=== PATIENT | male | born 1975 | race Caucasian/White ===

== ENCOUNTER → 2017-11-04 | Outpatient (REF) | payer OTHER ==
[2017-11-04 13:19] LABS: TESTOSTERONE 359 NG/DL (241-827)
== END ==
LOC: M SFHCPLAZ 08:38
DX: R68.82 Decreased libido (principal)
CPT/HCPCS: 84403

== ENCOUNTER → 2021-05-15 | Outpatient (CLI) | payer BC, OTHER ==
[~2021-05-15] MED LIST: No Historical Meds; PERC5TAB8 OR; PRED10TA2 OR; Pentasa PO
--- NOTE | 2021-05-15 12:35 | REP ---
INDICATION: CONTUSION. COMPARISON: None. TECHNIQUE: 6 views of the lumbar spine are presented. FINDINGS: Lumbar vertebral body heights are preserved. Alignment is normal. There is a bilateral L5 spondylolysis although no discernible spondylolisthesis is seen.. No fracture or collapse is seen. There is degenerative narrowing of the 4 5 and 3 4 disc spaces with anterior osteophyte formation at these levels. Anterior spurring is also noted at the L2-3 disc space. Psoas margins are symmetric. Sacrum and SI joints are intact. There are surgical sutures in the central pelvis and right lower abdomen from previous abdominal surgery. IMPRESSION: No traumatic abnormality noted. Degenerative spondylosis changes. Bilateral L5 spondylolysis without spondylolisthesis. <Electronically signed by Nishant Nassar > 05/15/21 [id number]
--- NOTE | 2021-05-15 12:41 | REP ---
INDICATION: CONTUSION. COMPARISON: None. TECHNIQUE: Four views of the sacrum and coccyx are presented. FINDINGS: The SI joints and symphysis pubis are intact. There is midline gastrointestinal surgical suture line. Bony pelvic ring is intact. No hip fracture is seen. No sacral fracture is noted. Lateral view shows pre sacral soft tissues be intact. No sacral fracture or displacement. Coccyx is unremarkable. IMPRESSION: No traumatic abnormality noted. Negative views of the sacrum and coccyx. <Electronically signed by Nishant Nassar > 05/15/21 [id number]
== END ==
LOC: M WUC 10:17
PROVIDERS: ATTEND Physician Assistant
DX: S30.0XXA Contusion of lower back and pelvis, initial encounter (principal)

== ENCOUNTER → 2023-03-06 | Outpatient (CLI) | payer BC, OTHER ==
[2023-03-06 10:19] LABS: BASO % 0.6 % (0.0-1.0); HEMATOCRIT 41.7 % (42.0-52.0); HEMOGLOBIN 14.5 g/dl (13.5-17.5); LYMPH % 43.3 % (24.0-44.0); MEAN CORPUSCULAR HEMOGLOBIN 29.8 pg (27.0-33.0); MEAN CORPUSCULAR HGB CONC 34.8 g/dl (32.0-36.5); MEAN CORPUSCULAR VOLUME 85.6 fl (80.0-96.0); MONO # 0.6 10^3/uL (0.0-0.8); MONO % 8.1 % (2.0-8.0); NEUTROPHILS # 3.3 10^3/uL (1.5-8.5); NEUTROPHILS % 47.6 % (36.0-66.0); PLATELET COUNT, AUTOMATED 262 10^3/uL (150-450); RED BLOOD COUNT 4.87 10^6/uL (4.30-6.10); WHITE BLOOD COUNT 6.8 10^3/uL (4.0-10.0)
[2023-03-06 10:32] LABS: ALBUMIN 3.7 G/DL (3.2-5.2); ALKALINE PHOSPHATASE 76 U/L (46-116); ALT/SGPT 32 U/L (7.0-40); AST/SGOT 14 U/L (<34); BILIRUBIN,TOTAL 0.5 MG/DL (0.3-1.2); BLOOD UREA NITROGEN 17 MG/DL (9-23); CALCIUM LEVEL 9.3 MG/DL (8.5-10.1); CARBON DIOXIDE LEVEL 30 MMOL/L (20-31); CHLORIDE LEVEL 106 MMOL/L (98-107); CHOLESTEROL LEVEL 174 MG/DL (<200); CHOLESTEROL RISK RATIO 3.01 (<5); CREATININE FOR GFR 1.18 MG/DL (0.70-1.30); GLOMERULAR FILTRATION RATE > 60.0 (>60); GLUCOSE, FASTING 87 MG/DL (60-100); HDL CHOLESTEROL 57.8 MG/DL (>40); LDL CHOLESTEROL 88.4 MG/DL (<100); NON-HDL-C 116.2 MG/DL; POTASSIUM SERUM 4.3 MMOL/L (3.5-5.1); SODIUM LEVEL 140 MMOL/L (136-145); TOTAL PROTEIN 6.5 G/DL (5.7-8.2); TRIGLYCERIDES LEVEL 139 MG/DL (<150)
[2023-03-06 10:35] LABS: FREE T4 1.15 NG/DL (0.89-1.76); THYROID STIMULATING HORMONE 2.749 uIU/ML (0.55-4.78)
[2023-03-06 10:51] LABS: HEMOGLOBIN A1c 5.2 % (4.0-6.0)
== END ==
LOC: M WUC 08:29
PROVIDERS: ATTEND Physician Assistant
DX: Z13.29 Encounter for screening for other suspected endocrine disorder (principal); Z13.220 Encounter for screening for lipoid disorders; Z12.5 Encounter for screening for malignant neoplasm of prostate
CPT/HCPCS: 36415; 80053; 80061; 83036; 84439; 84443; 85025; G0103